=== PATIENT | male | born 1935 | race Caucasian/White ===

== ENCOUNTER → 2021-05-08 13:14 | Outpatient (BNVA) | payer MEDICARE, OTHER, SELFPAY | PROVIDERS: Visit Provider Urology | DX: C61 Malignant neoplasm of prostate (principal) | CPT/HCPCS: 99212 ==

== ENCOUNTER 2022-05-08 10:58 | Outpatient (AMB) | payer MEDICARE, OTHER, SELFPAY ==
--- NOTE | 2022-05-08 11:23 | A.OFFVIS_ITS ---
Intake Intake Visit Reasons: 1 Y PSA (PSA?) Intake Note: Patient is present for psa follow up Registered Radiation Therapist Required: No Accompanied by: Self / Same As Patient Allergies gabapentin Allergy (Unknown, Verified 05/08/23 11:36) Abdominal Pain kewi Allergy (Unknown, Uncoded 05/08/23 11:36) itchy Motrin Allergy (Unknown, Uncoded 05/08/23 11:36) Abdominal Pain HPI HPI Comments History of Present Illness Details Mando VARGAS is a very pleasant male. They are a patient of Dr Figueredo. They are seen in the office today for the following urologic conditions. - prostate cancer Doing well Slight rise in PSA Continue surveillance Prostate cancer:? Favorable intermediate, low volume. External beam radiation Slow rising PSA Discussed observation Continue to follow ? Prostate cancer was diagnosed?[address] Angelo.? Diagnosis was reached by?needle biopsy, for elevated PSA.? The Sandra grade is?3+4 = 7.? TNM Classification of Malignant Tumours (TNM)?T1c.? The D'Robbie (NCCN) risk category is?Intermediate Risk (PSA 10-20, Gl 7, T2).? Initial therapy included?Primary treatment, External Beam Radiation [place] - 77Gy.? Recent labs included?a PSA (prostate-specific antigen) July 2012 nondetectable, March 2015 1.1, March 2016 0.85, ?March 2017 0.9 ?March 2018 0.8 ?03/31 0.7, 05/01 0.9, 05/02 0.6 ? Associated conditions ? erectile dysfunction ?Yes mail order viagra ? hematuria ?No ? hot flashes ?No ? incontinence ?No ? osteopenia ?No ? pathologic fracture ?No ? radiation cystitis ?No ? rectal urgency ?No ? Therapeutic plan:?Continue with surveillance [facility] Medical History (Updated 07/02/23 @ 14:12 by Atul Angelo MD) Erectile dysfunction Lymphoma Familial stomach cancer Hyperlipidemia Prostate cancer Review of Systems Const Denies chills and Denies fever(s) Card Reports no additional complaints and Denies syncope Resp Denies cough GI Denies abdominal pain and Denies heartburn Reports as per HPI and Denies change in libido Neuro Denies syncope Psych Denies change in libido Endo Denies change in libido Physical Exam Const General: cooperative, healthy appearing, comfortable and no acute distress Orientation/consciousness: patient oriented x3 HEENT Face and sinus: Yes normal facial exam Mouth: moist mucous membranes Neck Neck: Yes normal visual inspection, Yes full ROM and Yes trachea midline Chest Chest palpation & inspection: normal inspection of the chest Resp Effort & Inspection: normal respiratory effort, able to speak in complete sentences and no respiratory distress GI Inspection: Yes normal to inspection Back/Spine/Pelvis Cervical Spine: normal cervical lordosis Thoracic/Lumbar Spine: thoracic and lumbar spine normal to inspection Skin General skin exam: no rashes or lesions noted Neuro General: patient oriented x3, gait normal, tone normal and moves all extremities Extrem General: Yes normal to inspection and Yes capillary refill normal Assessment & Plan Assessment & Plan (1) Erectile dysfunction: Code(s): N52.9 - Male erectile dysfunction, unspecified Qualifiers: Erectile dysfunction type: post-procedural Post-procedural erectile dysfunction type: following radiation therapy Qualified Code(s): N52.35 - Erectile dysfunction following radiation therapy (2) Prostate cancer: Code(s): C61 - Malignant neoplasm of prostate Plan Yearly surveillance Patient Instructions: Imaging studies, laboratory and physical exam results were discussed and re viewed in detail. No major barriers to patient understanding were identified. An opportunity to ask questions regarding the treatment plan was provided. All questions were answered. The patient expressed understanding and agreement with the above treatment plan. The patient is aware they should contact our office by phone for worsening of their current condition or the appearance of new urologic symptoms. Compliance is encouraged with any medications and followup testing that is ordered. It is a privilege to participate in the urologic care of your patient. If you have any questions or concerns regarding treatment for the above conditions, or other urologic issues, please do not hesitate to contact me. The office telephone contact is [phone]. This note is constructed using voice recognition software. While every effort has been made to ensure accuracy packaging line operator errors may have been included. Yours sincerely, Dr Atul Angelo MD, [facility] - Urology Providers of Expert, Compassionate Care for the Genitourinary System Coding Level of Care Code Est Pt Level 4 (44424) Diagnoses Erectile dysfunction following radiation therapy N52.35 Erectile dysfunction type: post-procedural Post-procedural erectile dysfunction type: following radiation therapy Prostate cancer C61
== END 2022-05-08 12:10 | disposition home or self-care (01) ==
LOC: HO.HUSH 10:58
PROVIDERS: PCP Internal Medicine; Visit Provider Urology
DX: N52.35 Erectile dysfunction following radiation therapy (principal); C61 Malignant neoplasm of prostate
CPT/HCPCS: 99499

== ENCOUNTER 2023-05-08 11:34 | Outpatient (AMB) | payer MEDICARE, OTHER, SELFPAY ==
--- NOTE | 2023-05-08 11:36 | A.OFFVIS_ITS ---
Intake Intake Visit Reasons: 1Y PSA(will bring results in) Intake Note: Pt presents to the office today for a 1 year PSA. Allergies gabapentin Allergy (Unknown, Verified 05/08/23 11:36) Abdominal Pain kewi Allergy (Unknown, Uncoded 05/08/23 11:36) itchy Motrin Allergy (Unknown, Uncoded 05/08/23 11:36) Abdominal Pain HPI HPI Comments History of Present Illness Details Mando VARGAS is a very pleasant male. He is a patient of Dr Figueredo. He is seen for the following urologic conditions. - prostate cancer - erectile dysfunction responsive to jaya denafil - lower urinary tract symptoms Doing well Still responsive to sildenafil Happy with current urinary performance Continue surveillance yearly Prostate cancer:? Favorable intermediate, low volume. External beam radiation 2011 ? Prostate cancer was diagnosed?[address] Angelo.? Diagnosis was reached by?needle biopsy, for elevated PSA.? The Sandra grade is?3+4 = 7.? TNM Classification of Malignant Tumours (TNM)?T1c.? The D'Robbie (NCCN) risk category is?Intermediate Risk (PSA 10-20, Gl 7, T2).? Initial therapy included?Primary treatment, External Beam Radiation [place] - 77Gy.? Recent labs included?a PSA (prostate-specific antigen) July 2012 non detectable, March 2015 1.1, March 2016 0.85, March 2017 0.9, March 2018 0.8, 03/31 0.7, 05/01 0.9, 05/02 0.6 ? Associated conditions ? erectile dysfunction ?Yes mail order via[employer] ? Therapeutic plan:?Continue with surveillance [facility] Medical History (Updated 07/02/23 @ 14:12 by Atul Angelo MD) Erectile dysfunction Lymphoma Familial stomach cancer Hyperlipidemia Prostate cancer Review of Systems Const Denies chills and Denies fever(s) Card Reports no additional complaints and Denies syncope Resp Denies cough GI Denies abdominal pain and Denies heartburn Reports as per HPI and Denies change in libido Neuro Denies syncope Psych Denies change in libido Endo Denies change in libido Physical Exam Const General: cooperative, healthy appearing, comfortable and no acute distress Orientation/consciousness: patient oriented x3 HEENT Face and sinus: Yes normal facial exam Mouth: moist mucous membranes Neck Neck: Yes normal visual inspection, Yes full ROM and Yes trachea midline Chest Chest palpation & inspection: normal inspection of the chest Resp Effort & Inspection: normal respiratory effort, able to speak in complete sentences and no respiratory distress GI Inspection: Yes normal to inspection Back/Spine/Pelvis Cervical Spine: normal cervical lordosis Thoracic/Lumbar Spine: thoracic and lumbar spine normal to inspection Skin General skin exam: no rashes or lesions noted Neuro General: patient oriented x3, gait normal, tone normal and moves all extremities Extrem General: Yes normal to inspection and Yes capillary refill normal Assessment & Plan Assessment & Plan (1) Prostate cancer: Code(s): C61 - Malignant neoplasm of prostate (2) Erectile dysfunction: Code(s): N52.9 - Male erectile dysfunction, unspecified Qualifiers: Post-procedural erectile dysfunction type: following radiation therapy Erectile dysfunction type: post-procedural Qualified Code(s): N52.35 - Erectile dysfunction following radiation therapy Plan Continue tamsulosin as needed Yearly PSA Orders: Orders Prostate Specific Antigen 364 Days C61 - Malignant neoplasm of prostate Medications: New tamsulosin 0.4 mg PO daily 14 caps 1RF 14 days C61 - Malignant neoplasm of prostate Patient Instructions: Imaging studies, laboratory and physical exam results were discussed and reviewed in detail. No major barriers to patient understanding were identified. An opportunity to ask questions regarding the treatment plan was provided. All questions were answered. The patient expressed understanding and agreement with the above treatment plan. The patient is aware they should contact our office by phone for worsening of their current condition or the appearance of new urologic symptoms. Compliance is encouraged with any medications and followup testing that is ordered. It is a privilege to participate in the urologic care of your patient. If you have any questions or concerns regarding treatment for the above conditions, or other urologic issues, please do not hesitate to contact me. The office telephone contact is [phone]. This note is constructed using voice recognition software. While every effort has been made to ensure accuracy associate chief nurse errors may have been included. Yours sincerely, Dr Atul Angelo MD, [facility] - Urology Providers of Expert, Compassionate Care for the Genitourinary System Coding Level of Care Code Est Pt Level 4 (85596) Diagnoses Prostate cancer C61 Erectile dysfunction following radiation therapy N52.35 Post-procedural erectile dysfunction type: following radiation therapy Erectile dysfunction type: post-procedural
== END 2023-05-08 12:27 | disposition home or self-care (01) ==
PROVIDERS: Visit Provider Urology
DX: C61 Malignant neoplasm of prostate (principal); N52.35 Erectile dysfunction following radiation therapy
CPT/HCPCS: 99214

== ENCOUNTER → 2023-05-08 11:34 | Outpatient (BNVA) | payer MEDICARE, OTHER, SELFPAY | PROVIDERS: Visit Provider Urology | DX: C61 Malignant neoplasm of prostate (principal); N52.35 Erectile dysfunction following radiation therapy | CPT/HCPCS: 99212 ==

== ENCOUNTER → 2024-05-31 11:39 | Outpatient (BNVA) | payer MEDICARE, OTHER, SELFPAY | PROVIDERS: PCP Internal Medicine; Visit Provider Urology ==

== ENCOUNTER 2024-05-31 15:05 | Outpatient (AMB) | payer MEDICARE, OTHER, SELFPAY ==
--- NOTE | 2024-05-31 15:01 | A.OFFVIS_ITS ---
Intake Visit Reasons: 1Y Follow Up-PVR/PSA(set) Intake Note: Patient is present for 1Y F/U PVR/PSA Urology Medication: Antibiotic Allergy:SILDENAFIL, TAMSULOSIN Blood Thinner:NONE Polymer Scientist Required: No Allergies gabapentin Allergy (Unknown, Verified 05/31/24 15:02) Abdominal Pain kewi Allergy (Unknown, Uncoded 05/31/24 15:02) itchy Motrin Allergy (Unknown, Uncoded 05/31/24 15:02) Abdominal Pain Medication List - Last Reconciled 05/31/24 by Atul Angelo MD allopurinol 100 mg PO DAILY cholecalciferol (vitamin D3) 25 mcg PO DAILY famotidine 20 mg PO BID fluticasone propionate 50 mcg/actuation 1 spray intranasal DAILY sildenafil 100 mg PO DAILY PRN 30 days simvastatin 20 mg PO DAILY terazosin 4 mg PO DAILY zolpidem 5 mg PO BEDTIME HPI Comments Details: Mando VARGAS is a very pleasant male. He is a patient of Dr Figueredo. He is seen for the following urologic conditions. - prostate cancer - erectile dysfunction responsive to sildenafil - lower urinary tract symptoms Telemedicine Evaluation 15 min Consultation [employer] Video Doing well Still responsive to sildenafil Happy with current urinary performance Continue surveillance yearly Prostate cancer:? Favorable intermediate, low volume. External beam radiation 2011 ? Prostate cancer was diagnosed?[address] Angelo.? Diagnosis was reached by?needle biopsy, for elevated PSA.? The Wilmot grade is?3+4 = 7 ? TNM Classification of Malignant Tumours (TNM)?T1c.? The D'Robbie (NCCN) risk category is?Intermediate Risk (PSA 10-20, Gl 7, T2).? Initial therapy included?Primary treatment - External Beam Radiation [place] - 77Gy.? Recent labs included?a PSA (prostate-specific antigen) July 2012 - nondetectable, March 2015 1.1, March 2016 0.85, March 2017 0.9, March 2018 0.8, 03/31 0.7, 05/01 0.9, 05/02 0.6, 03/04 0.5 ? Associated conditions ? Erectile Dysfunction - Yes mail order viagra ? Therapeutic plan:?Continue with surveillance [facility] Medical History (Updated 07/02/23 @ 14:12 by Atul Angelo MD) Erectile dysfunction Lymphoma Familial stomach cancer Hyperlipidemia Prostate cancer Review of Systems Const All systems reviewed & are unremarkable except as noted in HPI and below Reports no additional complaints Resp Reports no additional complaints GI Reports no additional complaints Reports as per HPI Musc Reports no additional complaints Physical Exam Telemedicine evaluation Appropriate responses Regular breathing rate and rhythm HEENT Head: Yes normal to inspection Ears: hearing grossly normal bilaterally Eyes General: appearance normal, both eyes and all related structures Neck Neck: Yes normal visual inspection Chest Chest palpation & inspection: normal inspection of the chest Resp Effort & Inspection: normal respiratory effort and able to speak in complete sentences Telehealth Telehealth Telehealth Platform: [employer] Location of provider rendering services: practice address Location of patient: address on file Patient Identification confirmed using: Name, : Yes Telehealth method: video Patient verbally consented to treatment: Yes Patient verbally consented to billing insurance company: Yes Patient informed of any privacy concerns related to visit: Yes Minutes spent on Phone/Video with Pt.: 15 Assessment & Plan Assessment & Plan (1) Prostate cancer: Code(s): C61 - Malignant neoplasm of prostate Category: Medical (2) Erectile dysfunction: Code(s): N52.9 - Male erectile dysfunction, unspecified Category: Medical Qualifiers: Erectile dysfunction type: post-procedural Post-procedural erectile dysfunction type: following radiation therapy Qualified Code(s): N52.35 - Erectile dysfunction following radiation therapy Plan Twelve month follow-up PSA Orders: Orders Prostate Specific Antigen 364 Days C61 - Malignant neoplasm of prostate Medications: Discontinued tamsulosin Discontinued Reason: Patient Completed Course 0.4 mg PO daily 14 days 14 caps 1RF C61 - Malignant neoplasm of prostate Patient Instructions: Imaging studies, laboratory and physical exam results were discussed and reviewed in detail. No major barriers to patient understanding were identified. An opportunity to ask questions regarding the treatment plan was provided. All questions were answered. The patient expressed understanding and agreement with the above treatment plan. The patient is aware they should contact our office by phone for worsening of their current condition or the appearance of new urologic symptoms. Compliance is encouraged with any medications and followup testing that is ordered. It is a privilege to participate in the urologic care of your patient. If you have any questions or concerns regarding treatment for the above conditions, or other urologic issues, please do not hesitate to contact me. The office telephone contact is [phone]. This note is constructed using voice recognition software. While every effort has been made to ensure accuracy biomedical instrument technician errors may have been included. Yours sincerely, Dr Atul Angelo MD, [facility] - Urology Providers of Expert, Compassionate Care for the Genitourinary System Coding Level of Care Code Tele Est Pt Level 4 (12675) Diagnoses Prostate cancer C61 Erectile dysfunction following radiation therapy N52.35 Erectile dysfunction type: post-procedural Post-procedural erectile dysfunction type: following radiation therapy
== END 2024-05-31 16:25 | disposition home or self-care (01) ==
PROVIDERS: PCP Internal Medicine; Visit Provider Urology
DX: C61 Malignant neoplasm of prostate (principal); N52.35 Erectile dysfunction following radiation therapy
CPT/HCPCS: 99214

== ENCOUNTER 2024-08-12 11:31 | Outpatient (AMB) | payer MEDICARE, OTHER, SELFPAY ==
--- NOTE | 2024-08-12 11:33 | A.OFFVIS_ITS ---
Intake Visit Reasons: terazosin discussion Intake Note: Patient is present for telephone follow up to discuss Terazosin Urology Med: Sildenafil Antibiotic Allergy:None Patient would like to discuss Terazosin wants to restart this medication currently pt reports that he is having some issues with his urination Hospice Manager Required: No Allergies gabapentin Allergy (Unknown, Verified 08/12/24 11:34) Abdominal Pain kewi Allergy (Unknown, Uncoded 08/12/24 11:34) itchy Motrin Allergy (Unknown, Uncoded 08/12/24 11:34) Abdominal Pain HPI Comments Details: Mando VARGAS is a very pleasant male. He is a patient of Dr Figueredo. He is seen for the following urologic conditions. - prostate cancer - erectile dysfunction responsive to sildenafil - lower urinary tract symptoms Telemedicine Evaluation 15 min Consultation [employer] Doing well Tried coming off terazosin Ended up with difficulty urinating Based on experimentation realize that 2 mg p.o. at bedtime works Refill provided Keep current follow-up Prostate cancer:? Favorable intermediate, low volume. External beam radiation 2011 ? Prostate cancer was diagnosed?[address] Angelo.? Diagnosis was reached by?needle biopsy, for elevated PSA.? The Sadnra grade is?3+4 = 7 ? TNM Classification of Malignant Tumours (TNM)?T1c.? The D'Robbie (NCCN) risk category is?Intermediate Risk (PSA 10-20, Gl 7, T2).? Initial therapy included?Primary treatment - External Beam Radiation [place] - 77Gy.? Recent labs included?a PSA (prostate-specific antigen) July 2012 - nondetectable, March 2015 1.1, March 2016 0.85, March 2017 0.9, March 2018 0.8, 03/31 0.7, 05/01 0.9, 05/02 0.6, 03/04 0.5 ? Associated conditions ? Erectile Dysfunction - Yes mail order viagra ? Therapeutic plan:?Continue with surveillance PFSH Medical History Erectile dysfunction Lymphoma Familial stomach cancer Hyperlipidemia Prostate cancer Review of Systems Const All systems reviewed & are unremarkable except as noted in HPI and below Reports no additional complaints Resp Reports no additional complaints GI Reports no additional complaints Reports as per HPI Musc Reports no additional complaints Physical Exam Telemedicine evaluation Appropriate responses Regular breathing rate and rhythm HEENT Head: Yes normal to inspection Ears: hearing grossly normal bilaterally Eyes General: appearance normal, both eyes and all related structures Neck Neck: Yes normal visual inspection Chest Chest palpation & inspection: normal inspection of the chest Resp Effort & Inspection: normal respiratory effort and able to speak in complete sentences Telehealth Telehealth Telehealth Platform: [employer] Location of provider rendering services: practice address Location of patient: address on file Patient Identification confirmed using: Name, : Yes Telehealth method: video Patient verbally consented to treatment: Yes Patient verbally consented to billing insurance company: Yes Patient informed of any privacy concerns related to visit: Yes Minutes spent on Phone/Video with Pt.: 15 Assessment & Plan Assessment & Plan (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 No major barriers to patient understanding were identified. An opportunity to ask questions regarding the treatment plan was provided. All questions were answered. The patient expressed understanding and agreement with the above treatment plan. The patient is aware they should contact our office by phone for worsening of their current condition or the appearance of new urologic symptoms. Compliance is encouraged with any medications and followup testing that is ordered. It is a privilege to participate in the urologic care of your patient. If you have any questions or concerns regarding treatment for the above conditions, or other urologic issues, please do not hesitate to contact me. The office telephone contact is [phone]. This note is constructed using voice recognition software. While every effort menon s been made to ensure accuracy display specialist errors may have been included. Yours sincerely, Dr Atul Angelo MD, [facility] - Urology Providers of Expert, Compassionate Care for the Genitourinary System Coding Level of Care Code Tele Est Pt Level 4 (18488) Diagnoses Bladder outlet obstruction N32.0
== END 2024-08-12 11:58 | disposition home or self-care (01) ==
LOC: HO.HUSH 11:31
PROVIDERS: PCP Internal Medicine; Visit Provider Urology
DX: N32.0 Bladder-neck obstruction (principal)
CPT/HCPCS: 99214

== ENCOUNTER → 2024-08-12 11:31 | Outpatient (BNVA) | payer MEDICARE, OTHER, SELFPAY | PROVIDERS: PCP Internal Medicine; Visit Provider Urology ==